=== PATIENT | born 1950 | race Caucasian/White ===

== ENCOUNTER → 2024-06-21 12:06 | Outpatient (BNVA) | payer BC, SELFPAY | PROVIDERS: Referring Provider Family Medicine; Visit Provider Psychiatry & Neurology Neurology | DX: R55 Syncope and collapse (principal); E55.9 Vitamin D deficiency, unspecified | CPT/HCPCS: 36415; 82306; 82607; 82746; 83090; 83735; 83921; 84439; 84443; 84481 ==

== ENCOUNTER 2024-07-06 09:37 | Outpatient (CLI) | payer BC, SELFPAY ==
--- NOTE | 2024-07-06 10:15 | CT_ITS ---
WS: [id number] CT HEAD TECHNIQUE: Noncontrast CT of the head obtained from the skullbase to the vertex. CLINICAL INFORMATION: R55 - Syncope and collapse COMPARISON: None. DLP: 1824.[address] scans at [facility] use at least one of these dose optimization techniques: automated e xposure control; mA and/or kV adjustment per patient size (includes targeted exams where dose is matc hed to clinical indication); or iterative reconstruction. FINDINGS: No evidence of intracranial hemorrhage or mass effect. Ventricular system and basal cisterns are mathews nt. Moderate small vessel changes with moderate parenchymal volume loss. Small chronic lacunar infarc t LEFT thalamus. No extra-axial fluid collections. No evidence of mass or mass effect. Intracranial v ascular calcification. Paranasal sinuses and mastoid air cells are well aerated. .Normal visualized soft tissues. CT/CT head wo con* [id number] IMPRESSION: 1. No evidence of intracranial hemorrhage or mass effect. 2. Moderate small vessel changes moderate parenchymal volume loss. 3. Small chronic lacunar infarct LEFT thalamus. 4. No acute intracranial findings.
== END 2024-07-06 09:38 | disposition home or self-care (01) ==
LOC: RAD 09:38
PROVIDERS: PCP Family Medicine; Visit Provider Psychiatry & Neurology Neurology
DX: R55 Syncope and collapse (principal); G31.89 Other specified degenerative diseases of nervous system
CPT/HCPCS: 70450

== ENCOUNTER 2024-07-24 11:31 | Oncology outpatient (recurring) (ONCR) | payer BC, SELFPAY ==
[2024-07-24 12:10] LABS: Basophils # 0.1 10^3/uL (0.0-0.1); Basophils % 0.9 %; Eosinophils # 0.4 10^3/uL (0.0-0.8); Eosinophils % 5.4 %; Hematocrit 41.3 % (36-47); Lymphocytes # 1.7 10^3/uL (0.8-4.8); Lymphocytes % 21.2 %; Mean Corpuscular HGB Conc 32.2 g/dL (30-55); Mean Corpuscular Volume 102.5 fl (85-98); Mean Platelet Volume 9.3 fL (7.4-10.4); Monocytes # 0.6 10^3/uL (0.2-0.9); Monocytes % 7.6 %; Neutrophils # 5.27 10^3/uL (1.8-7.7); Neutrophils % 64.7 %; Nucleated Red Blood Cells % 0 %; Platelet Count 292 10^3/cmm (157-399); Red Blood Count 4.03 10^6/uL (3.85-5.65); Red Cell Distribution Width 12.1 % (12.1-15.1); Reticulocyte % 1.6 % (0.5-2.0); White Blood Count 8.15 10^3/uL (3.29-11.43)
[2024-07-24 12:31] LABS: Alanine Aminotransferase 14 U/L (0-33); Alkaline Phosphatase 54 U/L (35-105); Anion Gap 13.2 (5-19); Aspartate Amino Transferase 15 U/L (0-32); Blood Urea Nitrogen 16 mg/dL (8-23); Carbon Dioxide 26 mmol/L (22-29); Chloride 103 mmol/L (98-107); Creatinine Clr Calc Pharmacy 50.1705; Globulin 2.6 g/dL (1.3-4.6); Glucose 98 mg/dL (65-115); Lactate Dehydrogenase 144 U/L (135-214); Osmolality Calculated 287 mOsm/kg (285-295); Potassium 4.2 mmol/L (3.5-5.1); Sodium 138 mmol/L (136-145); Total Bilirubin 0.4 mg/dL (0.15-1.2); Total Protein 6.6 g/dL (6.6-8.7)
[2024-07-24 12:43] LABS: Ferritin 1475 ng/mL (15-150)
[2024-07-24 12:47] LABS: Vitamin B12 1839 pg/mL (232-1245)
[2024-07-29 07:00] LABS: Methylmalonic Acid 182 nmol/L (69-390)
== END 2024-07-27 23:59 | disposition home or self-care (01) ==
PROVIDERS: PCP Family Medicine; Visit Provider Internal Medicine Hematology & Oncology
DX: E53.8 Deficiency of other specified B group vitamins (principal); Z53.9 Procedure and treatment not carried out, unspecified reason
CPT/HCPCS: 36415; 80053; 82607; 82728; 82746; 83615; 83921; 84238; 85025; 85045

== ENCOUNTER 2024-09-26 11:41 | Oncology outpatient (recurring) (ONCR) | payer BC, SELFPAY ==
[2024-09-26 12:26] LABS: Basophils # 0.1 10^3/uL (0.0-0.1); Basophils % 0.7 %; Eosinophils # 0.3 10^3/uL (0.0-0.8); Eosinophils % 3.3 %; Hematocrit 40.7 % (36-47); Lymphocytes # 1.7 10^3/uL (0.8-4.8); Lymphocytes % 19.8 %; Mean Corpuscular HGB Conc 31.9 g/dL (30-55); Mean Corpuscular Hemoglobin 32.5 pg (27-33); Mean Corpuscular Volume 101.8 fl (85-98); Mean Platelet Volume 9.2 fL (7.4-10.4); Monocytes # 0.6 10^3/uL (0.2-0.9); Monocytes % 7.6 %; Neutrophils # 5.75 10^3/uL (1.8-7.7); Neutrophils % 68.2 %; Nucleated Red Blood Cells % 0 %; Platelet Count 273 10^3/cmm (157-399); White Blood Count 8.43 10^3/uL (3.29-11.43)
[2024-09-26 12:30] LABS: Reticulocyte % 1.6 % (0.5-2.0)
[2024-09-26 13:06] LABS: Folate Level 10.1 ng/mL (4.8-37.3)
[2024-09-26 13:09] LABS: Alanine Aminotransferase 10 U/L (0-33); Albumin Level 3.9 g/dL (3.5-5.2); Alkaline Phosphatase 53 U/L (35-105); Anion Gap 14.6 (5-19); Aspartate Amino Transferase 17 U/L (0-32); Blood Urea Nitrogen 16 mg/dL (8-23); Calcium 9.4 mg/dL (8.5-10.5); Carbon Dioxide 23 mmol/L (22-29); Chloride 106 mmol/L (98-107); Creatinine Clr Calc Pharmacy 50.0998; Globulin 2.8 g/dL (1.3-4.6); Glucose 93 mg/dL (65-115); Iron 92 ug/dL (37-145); Lactate Dehydrogenase 148 U/L (135-214); Osmolality Calculated 289 mOsm/kg (285-295); Percent Saturation 42.3 % (20-50); Potassium 4.6 mmol/L (3.5-5.1); Sodium 139 mmol/L (136-145); Total Bilirubin 0.3 mg/dL (0.15-1.2); Total Iron Binding Capacity 217 mcg/dl; Total Protein 6.7 g/dL (6.6-8.7); Unsaturated Iron Binding 125 ug/dL (112-347); Vitamin B12 599 pg/mL (232-1245)
[2024-09-26 13:21] LABS: Ferritin 1511 ng/mL (15-150)
== END 2024-09-26 23:59 | disposition home or self-care (01) ==
PROVIDERS: Internal Medicine Hematology & Oncology; PCP Family Medicine; Visit Provider Internal Medicine Medical Oncology
DX: E55.9 Vitamin D deficiency, unspecified (principal); E53.8 Deficiency of other specified B group vitamins; Z79.899 Other long term (current) drug therapy
CPT/HCPCS: 36415; 80053; 82607; 82728; 82746; 83540; 83550; 83615; 84238; 85025; 85045